=== PATIENT | male | born 1990 | race African-American/Black ===

== ENCOUNTER 2022-01-22 20:17 | Emergency (ER) | payer SELFPAY ==
[~2022-01-22] VITALS: Ht 195.6 cm; Wt 190.5 kg
[2022-01-22 20:35] VITALS: BP 155/91
[2022-01-22] MEDS ORDERED: ALBU0.0912 IH (21:11)
[2022-01-22] MEDS ORDERED: CODE5SYR5 PO (21:11)
[2022-01-22] MEDS ORDERED: PRED20TA5 PO (21:11)
[2022-01-22] MEDS ORDERED: AZIT250T4 PO (21:11)
[2022-01-22 21:45] VITALS: BP 155/91
--- NOTE | 2022-01-22 21:45 | NUR ---
Patient discharged with v/s stable. Written and verbal after care instructions given and explained. Patient alert, oriented and verbalized understanding of instructions. Ambulatory with steady gait. All questions addressed prior to discharge. ID band removed. Patient advised to follow up with PMD. Rx of PROMETHAZINE HCL/CODINE, ALBUTEROL, AZYTHROMYCIN, PREDNISONE given. Patient educated on indication of medication including possible reaction and side effects. Opportunity to ask questions provided and answered.
== END 2022-01-22 21:45 | disposition home or self-care (01) ==
LOC: MED 20:17
DX: J40 Bronchitis, not specified as acute or chronic (principal); Z88.0 Allergy status to penicillin; Z88.8 Allergy status to other drugs, medicaments and biological substances; Z79.899 Other long term (current) drug therapy; Z85.71 Personal history of Hodgkin lymphoma
CPT/HCPCS: 99283